=== PATIENT | male | born 1985 | race Caucasian/White ===

== ENCOUNTER 2023-02-08 17:46 | Emergency (ER) | payer BC, SELFPAY ==
[2023-02-08 17:48] VITALS: BP 142/93; PULSE 70; RESP 14; TEMP 37.3; O2SAT 99
--- NOTE | 2023-02-08 18:12 | W.ED.GENAD ---
Discharge Plan Disposition Patient Disposition: Home Condition: Improving Discharge Details Chief Complaint: Laceration Clinical Impression: Laceration of scalp Primary Care Provider: Stephen Mendes ED Provider: Stephen Leija Discharge Instructions Instructions: Laceration (ED) Additional Instructions: Please keep wound clean and dry. Please have rosalinda removed in 7 to 10 days. Please return to the emergency department for any worsening symptoms. Medical Decision Making 37-year-old male presents after sustaining laceration to occipital scalp, cut on metal plate guard for a clean piece of equipment in his barn, sick centimeters minimally gaping linear laceration clean bordered hemostatic no foreign body. Patient believes he is up-to-date with tetanus booster. Neurologically intact afebrile nontoxic. Have applied L ET gel, will irrigate extensively, will close with rosalinda. 19: 07 patient resting early no acute distress neurologically intact. Wound irrigated extensively. No foreign bodies appreciated. Hemostatic. 6 surgical rosalinda. Patient to follow-up closely with primary care. Given return precaution HPI General Date/Time Provider Initiated Documentation: 02/08/23 17:59. HPI Narrative: 37-year-old male presents after lacerating scalp on metal guard to a cutting blade on a piece of equipment in his barn. Equipment had not been used this season. Patient believes he is up-to-date on tetanus booster Related Data Allergies Allergy/AdvReac Type Severity Reaction Status Date / Time No Known Allergies Allergy Unverified 02/08/23 17:54 General Stated Complaint: Laceration LEV: 4 Review of Systems Narrative: Review of Systems Constitutional: negative Eyes: negative ENT: negative Cardiovascular: negative Respiratory: negative Gastrointestinal: negative : negative Musculoskeletal: negative Skin: Scalp laceration Neurologic: negative Psych: negative PFSH All Active Problems (Updated 02/08/23 @ 19:08 by Stephen Leija MD) Laceration of scalp (Acute) Social History Smoking risk assessment performed?: No Exam Narrative Exam Narrative: Physical Examination General: alert, awake, cooperative, resting comfortably, no acute distress HEENT: normocephalic, sick centimeter linear minimally gaping clean bordered laceration to superior occipital scalp hemostatic no foreign bodies appreciated Neck: supple, trachea midline; full ROM Skin: no lesions, rashes or trauma appreciated Neuro: AAOx3, normal speech, moving all extremities, ambulatory Psych: Appropriate mood and affect Course Vital Signs Vital signs: Vital Signs Temperature 37.3 C 02/08/23 17:48 Pulse 70 02/08/23 17:48 Respiratory Rate 14 02/08/23 17:48 Blood Pressure 142/93 H 02/08/23 17:48 Pulse Oximetry 99 02/08/23 17:48 Temperature 37.3 C 02/08/23 17:48 Temperature Source Skin 02/08/23 17:48 Pulse 70 02/08/23 17:48 Respiratory Rate 14 02/08/23 17:48 Blood Pressure 142/93 H 02/08/23 17:48 Blood Pressure Position Sitting 02/08/23 17:48 Pulse Oximetry 99 02/08/23 17:48 Oxygen Delivery Method Room Air 02/08/23 17:48 Oxygen Flow Rate 0 02/08/23 17:48 Pain Level 3 02/08/23 17:48 Procedures Laceration Laceration 1: Site: scalp Size (cm): 6 Description: linear Depth: simple, single layer Local Anesthetic: other anesthetic (LET) Pre-repair: irrigated extensively Technique: other (Hundred x6)
[2023-02-08] MEDS: Lidocaine/Epinephri/Tetracaine Topical Gel 3 ML TP (18:15)
== END 2023-02-08 19:33 | disposition home or self-care (01) ==
PROVIDERS: Emergency Provider Emergency Medicine; PCP Family Medicine
DX: S01.01XA Laceration without foreign body of scalp, initial encounter (principal); X58.XXXA Exposure to other specified factors, initial encounter
CPT/HCPCS: 12002